=== PATIENT | male | born 1965 | race Caucasian/White ===

== ENCOUNTER 2023-07-26 13:25 | Emergency (ER) | payer BC ==
[~2023-07-26] VITALS: Ht 193 cm; Wt 145.0 kg
[2023-07-26 13:35] VITALS: TEMP 98.1
[2023-07-26] MEDS ORDERED: NS 1,000 ML IV ONE (14:00)
[2023-07-26 14:15] LABS: BASO % 0.5 % (0.0-2.0); EOS # 0.1 K/mm3 (0.0-0.7); EOS % 0.7 % (0.0-4.0); GRAN # 5.1 K/mm3 (1.4-6.5); GRAN % 64.3 % (42.2-75.2); HEMATOCRIT 47.2 % (42.0-52.0); LYMPH # 2.2 K/mm3 (1.2-3.4); LYMPH % 26.8 % (20.0-51.0); MEAN CELL VOLUME 88 fl (80.0-100.0); MEAN CORPUSCULAR HEMOGLOBIN 30 pg (27-31); MEAN CORPUSCULAR HGB CONC 34 g/dl (33.0-37.0); MEAN PLATELET VOLUME 11.6 fl (7.4-10.4); MONO # 0.6 K/mm3 (0.1-0.6); MONO % 7.5 % (1.7-9.3); PLATELET COUNT 144 K/mm3 (130-400); RED BLOOD COUNT 5.35 M/mm3 (4.20-5.60); REDCELL DISTRIBUTION WIDTH-CV 13.3 % (11.5-14.5)
[2023-07-26 14:30] LABS: PH 5.5 (5.0-8.5); URINE APPEARANCE CLEAR (CLEAR/HAZY); URINE BLOOD NEGATIVE (NEGATIVE); URINE COLOR Dark Yellow (YELLOW); URINE GLUCOSE NEGATIVE (NEGATIVE); URINE KETONE NEGATIVE (NEGATIVE); URINE NITRATE NEGATIVE (NEGATIVE); URINE PROTEIN(semi-quant) TRACE (NEGATIVE)
[2023-07-26 14:35] LABS: ALBUMIN 4.1 g/dL (3.5-5.0); CALCIUM 9.4 mg/dL (8.4-10.2); CREATININE, serum 0.88 mg/dL (0.72-1.25); POTASSIUM 3.7 mEq/L (3.5-4.5); TOTAL PROTEIN 7.6 g/dl (6.2-8.1)
[2023-07-26 14:41] LABS: COLLECTION METHOD CLEAN CATCH
[2023-07-26] MEDS ORDERED: Iohexol 300 - 100 ML VIAL IV ONE (15:09)
[2023-07-26] MEDS ORDERED: NS 100 ML IV SCH (15:10)
[2023-07-26] MEDS ORDERED: AMOXICILLIN 8751 TAB PO (16:04)
[2023-07-26 16:14] VITALS: BP 136/86; PULSE 72
== END 2023-07-26 16:20 | disposition home or self-care (01) ==
LOC: COL.ER 13:25
PROVIDERS: Physician Assistant
DX: K57.32 Diverticulitis of large intestine without perforation or abscess without bleeding (principal); K76.0 Fatty (change of) liver, not elsewhere classified; R05.9 Cough, unspecified
CPT/HCPCS: J7030; Q9967

== ENCOUNTER 2024-01-26 11:25 | Day surgery (SDC) | payer BC ==
[~2024-01-26] VITALS: Ht 193 cm; Wt 143.8 kg
[2024-01-26] VITALS (11 sets, daily range): BP systolic 102–119; BP diastolic 53–84; PULSE 68–89; TEMP 98.5
[~2024-01-26 11:25] MED LIST: AMOXICILLIN 8751 TAB PO
[2024-01-26] MEDS ORDERED: 1/2 NS 1,000 ML IV SCH (12:00)
[2024-01-26] MEDS ORDERED: TOPROL XL 25MG25 MG PO (12:05)
[2024-01-26] MEDS ORDERED: ASPIRIN 81M81 MG/TA2 PO (12:06)
[2024-01-26] MEDS ORDERED: ZESTRIL 10MG10 MG PO (12:06)
[2024-01-26] MEDS ORDERED: COMPLETE MULTI1 TAB PO (12:06)
[2024-01-26 12:23] LABS: HEMATOCRIT 46.1 % (42.0-52.0); MEAN CELL VOLUME 87 fl (80.0-100.0); MEAN CORPUSCULAR HEMOGLOBIN 30 pg (27-31); MEAN CORPUSCULAR HGB CONC 35 g/dl (33.0-37.0); PLATELET COUNT 166 K/mm3 (130-400); REDCELL DISTRIBUTION WIDTH-CV 13.2 % (11.5-14.5)
[2024-01-26] MEDS ORDERED: Acetaminophen 325 MG TAB PO PRN (12:30)
[2024-01-26 12:32] LABS: INR 1.2 (0.8-3.0); PROTHROMBIN TIME 12.9 SECONDS (9.7-12.8)
[2024-01-26 12:35] LABS: PARTIAL THROMBOPLASTIN TIME 32.7 SECONDS (26.0-37.0)
[2024-01-26 12:42] LABS: CALCIUM 9.1 mg/dL (8.4-10.2); CREATININE, serum 0.84 mg/dL (0.72-1.25); POTASSIUM 3.8 mEq/L (3.5-4.5)
--- NOTE | 2024-01-26 15:10 | NUR ---
SEE MERGE FOR PROCEDURE DOCUMENTATION
[2024-01-26] MEDS ORDERED: Midazolam 2 MG/2 ML VIAL IV SCH (15:20)
[2024-01-26] MEDS ORDERED: fentaNYL 50 MCG/ML 2 ML VIAL IV SCH (15:21)
[2024-01-26] MEDS ORDERED: Heparin 1,000 UNITS/ML 10 ML Multi-Dose VIAL IV SCH (15:27)
[2024-01-26] MEDS ORDERED: Heparin 1,000 UNITS/ML 10 ML Multi-Dose VIAL IA SCH (15:31)
[2024-01-26] MEDS ORDERED: Nitroglycerin 100 MCG/ML (Cath Lab) 10 ML VIAL IA SCH (15:32)
[2024-01-26] MEDS ORDERED: Verapamil 2.5 MG/ML 2 ML VIAL IA SCH (15:35)
[2024-01-26] MEDS ORDERED: Iohexol 350 - 100 ML VIAL INCOR ONE (15:37)
--- NOTE | 2024-01-26 17:03 | NUR ---
Report given to BETH Desai so she may take over cares of pt. He has been resting comfortably since return from [employer]. Rt radial site remains clean, no swelling or bleeding. Neck pain pt had complained of at arrival is resolved. Pt eating dinner. at bedside. Call light in reach.
--- NOTE | 2024-01-26 18:59 | NUR ---
After 2 hrs of recovery air was taken from the radial band. 2 mls about every 15 minutes. The site remained clean and dry. Once all the air was released the radial site was cleaned and a band-aid was applied. The deflated radial band was reapplied as a reminder to limit extremity use. The pt requested the wrist board be reapplied as a second reminder. Discharge education and information discussed with the pt. No questions at the time. IV dc'd and the site was wrapped with coban. The pt exited the unit by wheelchair accompanied by this nurse to wifes car.
== END 2024-01-26 18:42 | disposition home or self-care (01) ==
LOC: COL.CAR 11:25
PROVIDERS: Internal Medicine Cardiovascular Disease
DX: I42.8 Other cardiomyopathies (principal); I50.9 Heart failure, unspecified; E66.01 Morbid (severe) obesity due to excess calories; Z68.41 Body mass index [BMI] 40.0-44.9, adult; Z82.49 Family history of ischemic heart disease and other diseases of the circulatory system
CPT/HCPCS: C1769; J1644; J2250; J3010; Q9967